=== PATIENT | male | born 2000 | race African-American/Black ===

== ENCOUNTER 2021-03-23 11:01 | Emergency (ER) | payer OTHER ==
[~2021-03-23] VITALS: Ht 177.8 cm; Wt 72.6 kg
[2021-03-23] MEDS ORDERED: Vibramycin100 MG PO (13:00)
[2021-03-23] MEDS ORDERED: IBUP400 PO (13:00)
[2021-03-25 01:10] LABS: CHLAMYDIA TRACHOMATIS, NAA Negative (Negative)
== END 2021-03-23 13:11 | disposition home or self-care (01) ==
LOC: ER 11:01
PROVIDERS: Emergency Medicine
DX: S40.212A Abrasion of left shoulder, initial encounter (principal); S20.313A Abrasion of bilateral front wall of thorax, initial encounter; S50.311A Abrasion of right elbow, initial encounter; S60.512A Abrasion of left hand, initial encounter; S80.811A Abrasion, right lower leg, initial encounter; M54.5 Low back pain; F17.210 Nicotine dependence, cigarettes, uncomplicated; V23.4XXA Motorcycle driver injured in collision with car, pick-up truck or van in traffic accident, initial encounter
CPT/HCPCS: 72100; 87491; 87591; 96372; 99283-25; A9270; J0696